=== PATIENT | male | born 1955 | race Caucasian/White ===

== ENCOUNTER 2019-03-06 05:09 | Observation (INO) ==
[2019-03-04 08:45] LABS: HEMATOCRIT 44.5 % (42.0-52.0); HEMOGLOBIN 15.5 g/dL (14.0-18.0); MCHC 34.8 g/dL (33-37); MCV 83.3 FL (81-99); MPV 9.7 FL (7.4-10.4); RBC 5.34 XMIL (4.7-6.1); WBC 5.66 X1000 (4.8-10.8)
[2019-03-04 08:54] LABS: INR 0.94; PROTIME 13.4 Seconds (11.0-16.0)
[2019-03-04 09:25] LABS: AGAP 11; BUN 20 mg/dL (8-22); CALCIUM 9.2 mg/dL (8.8-10.2); CHLORIDE 100 mmol/L (98-107); COSMO 279; CREATININE 1.1 mg/dL (0.7-1.2); ESTIMATED GFR > 60; GLUCOSE 137 mg/dL (70-104); POTASSIUM 4.3 mmol/L (3.5-5.1); SODIUM 137 mmol/L (136-145); TCO2 26 mmol/L (25-35)
--- NOTE | 2019-03-05 19:37 | HISTORY AND PHYSICAL ---
HISTORY OF PRESENT ILLNESS: 63-year-old male with history of bladder cancer and significant BPH and recurrent prostatitis. He had undergone TURBT in 2015. He has hesitancy, urgency and has had UTIs with urosepsis. He underwent cystoscopy on 02/20/2019 which revealed significant bilobar prostatic hypertrophy with obstruction. He was counseled medical therapy versus [facility] TURP and desires to proceed with the surgery. PAST MEDICAL HISTORY: GERD, allergic rhinitis, arthritis, BPH, gout, history of bladder cancer, hypertension, hypogonadism, urolithiasis. PAST SURGICAL HISTORY: Cystoscopy with bilateral retrograde pyelograms, transurethral resection of bladder tumor, right extracorporeal shockwave lithotripsy. HOME MEDICATIONS: Coreg, Diovan, Flomax, Norvasc. ALLERGIES: PRUDENCE inhibitors. FAMILY HISTORY: Positive for diabetes, hypertension, hyperlipidemia, prostate cancer. SOCIAL HISTORY: Denies tobacco, alcohol or drug use. PHYSICAL EXAMINATION: GENERAL: No acute distress. HEENT: Normocephalic, atraumatic. CARDIOVASCULAR: Regular rhythm. ABDOMEN: Protuberant, nontender to palpation. : Normal external male genitalia. Meatus is patent. Testes descended bilaterally. ASSESSMENT AND PLAN: A 63-year-old male with significant benign prostatic hypertrophy with symptoms who has had urinary tract infections and urosepsis. He desires definitive surgical intervention. We discussed risks of [facility] transurethral resection of prostate including but not limited to bleeding, infection, injury to adjacent structures, small risk of permanent urinary incontinence and risk of permanent erectile dysfunction as well as persistent irritative voiding were explained. We also discussed the need for future interventions. He voiced understanding and wants to proceed. PLAN: [facility] transurethral resection of the prostate. cc: Mitch Jones MD
[2019-03-06] MEDS ORDERED: KEFZOL 1 GM/D5W 2 GM/100 ML IVPB ONE (06:01)
[2019-03-06] MEDS ORDERED: LR 1,000 ML ONE (06:01)
[2019-03-06] MEDS ORDERED: DIPRIVAN 1% ONE (06:28)
[2019-03-06] MEDS ORDERED: SUFENTA ONE (06:37)
[2019-03-06] MEDS ORDERED: NS 250 ML ONE ×3 (07:21→08:23)
[2019-03-06] MEDS ORDERED: DECADRON ONE (07:24)
[2019-03-06] MEDS ORDERED: ZOFRAN ONE (07:24)
[2019-03-06] MEDS ORDERED: B & O 16A SUPP ONE (07:30)
[2019-03-06] MEDS: DILAUDID ONE ×2 (09:01→09:04)
[2019-03-06] MEDS ORDERED: PYRIDIUM ONE (09:43)
[2019-03-06] MEDS ORDERED: NORCO-5 ONE (09:43)
[2019-03-06] MEDS ORDERED: DEMEROL ONE ×2 (10:51→11:25)
[2019-03-06] MEDS ORDERED: DITROPAN PO ONE (12:05)
[2019-03-06] MEDS ORDERED: DITROPAN ONE (12:15)
[2019-03-06] MEDS ORDERED: PYRIDIUM PO PRN (13:41)
[2019-03-06] MEDS ORDERED: NORCO-5 PO PRN (13:42)
[2019-03-06] MEDS ORDERED: NORCO-7.5 PO PRN (13:42)
[2019-03-06] MEDS ORDERED: DEMEROL IV PRN (13:43)
[2019-03-06] MEDS ORDERED: NORCO-10 PO PRN (13:43)
[2019-03-06] MEDS ORDERED: ZOFRAN IV PRN ×2 (13:44→14:45)
[2019-03-06] MEDS ORDERED: PHENERGAN IM PRN (13:44)
[2019-03-06] MEDS ORDERED: DEMEROL IM PRN (13:44)
[2019-03-06] MEDS ORDERED: NORCO-7.5 ONE (13:54)
[2019-03-06] MEDS ORDERED: PHENERGAN PO PRN (14:45)
[2019-03-06] MEDS ORDERED: TYLENOL PO PRN (14:45)
[2019-03-06] MEDS ORDERED: PHENERGAN IV PRN (14:45)
[2019-03-06] MEDS ORDERED: LABETALOL IV PRN (14:45)
[2019-03-06] MEDS ORDERED: PHENERGAN PR PRN (14:45)
[2019-03-06] MEDS ORDERED: DILAUDID IV PRN (14:45)
[2019-03-06] MEDS ORDERED: SODIUM CHLORIDE 0.9% INJ PRN (14:45)
[2019-03-06] MEDS ORDERED: B & O 15A SUPP PR PRN (14:45)
[2019-03-06] MEDS ORDERED: DITROPAN PO PRN (14:45)
[2019-03-06] MEDS ORDERED: OFIRMEV 1000 MG/ISOTONIC SOLN 1,000 MG/100 ML BOTTLE IV PRN (14:45)
[2019-03-06] MEDS ORDERED: D5 1/2 NS 1,000 ML IV SCH (15:00)
[2019-03-06] MEDS: KEFZOL 2 GM/D5W 2 GM/50 ML IVPB IV SCH ×3 (15:34→22:35)
[2019-03-06] MEDS: HYZAAR 100/12.5 MG TAB PO SCH (17:19)
[2019-03-06] MEDS: NORVASC PO SCH (17:19)
[2019-03-06] MEDS: IMDUR PO SCH (17:19)
[2019-03-06] MEDS: COREG PO SCH (17:20)
[2019-03-06 18:31] LABS: URINE SOURCE CATH
[2019-03-06 18:34] LABS: BILIRUBIN URINE NEGATIVE (NEGATIVE); BLOOD URINE MODERATE (NEGATIVE); COLOR YELLOW; GLUCOSE URINE >1000 mg/dL (NEGATIVE); KETONE URINE NEGATIVE (NEGATIVE); LEUKOCYTES URINE NEGATIVE (NEGATIVE); NITRITE URINE NEGATIVE (NEGATIVE); PH URINE 5.5; PROTEIN URINE TRACE mg/dL (NEGATIVE); SP GRAVITY URINE 1.017; TURBIDITY URINE HAZY (CLEAR); UR EPITHELIAL CELLS <10 /HPF (<10); URINE BACTERIA NEGATIVE /HPF; URINE RBC TNTC /HPF (<10); URINE WBC <10 /HPF (<10); UROBILINOGEN URINE NORMAL (NORMAL)
--- NOTE | 2019-03-06 19:48 | OPERATIVE NOTE ---
PROCEDURE DATE: 03/06/2019 SURGEON: Mtich Jones MD. PREOPERATIVE DIAGNOSES: 1. Benign prostatic hypertrophy. 2. Weak stream. 3. History of urinary tract infections with urosepsis. POSTOPERATIVE DIAGNOSES: 1. Benign prostatic hypertrophy. 2. Weak stream. 3. History of urinary tract infections with urosepsis. PROCEDURE: [facility] transurethral resection of the prostate. INDICATIONS: A 63-year-old male with history of bladder cancer and significant BPH with recurrent prostatitis. He has hesitancy, weak stream, has had UTIs with urosepsis. He underwent cystoscopy in the office in February 2019, revealing significant bilobar prostatic hypertrophy with obstruction. He was counseled on medical therapy versus TURP, and wants to proceed with [facility] TURP. He was counseled on the risks of the procedure, specifically the risk of permanent urinary incontinence, irritative voiding, erectile dysfunction, the need for additional interventions, as well as permanent retrograde ejaculation. FINDINGS: 193,209 joules were used, laser time was 34 minutes and 2 seconds, power ranged from 80 youngblood to 120 youngblood. Adequate hemostasis at the conclusion of the case. DESCRIPTION OF PROCEDURE: After obtaining informed consent, patient was brought to the operating room. Perioperative antibiotics and laryngeal mask anesthesia were administered. He was placed in lithotomy position, prepped and draped in sterile fashion. A 21-Cymro rigid cystoscope was used to gain access to the urethra and the bladder, which were examined in systematic fashion. He had a fairly high riding bladder neck and significant bilobar prostatic hypertrophy with approximately 4 to 5 cm length of prostatic urethra. There was no evidence of median lobe. I was able to visualize his bladder without evidence of mucosal lesions, diverticula, or stones seen in the bladder lumen. He had a few moderate trabeculations. I was able to see bilateral ureteral orifices with clear efflux. We then removed the cystoscope and introduced a 23-Cymro scope with [facility] laser fiber. I started at the level of the bladder neck at 5 o'clock and 7 o'clock, making troughs with a power of 80 youngblood. We resected the adenoma down to the level of the verumontanum distally with the same wattage. I then increased the power to 120 youngblood and resected the lateral lobes until the capsule was visible. The power setting was then decreased back down to 80 youngblood to address the prostatic tissue at the level of the verumontanum as well as anteriorly. There was some bleeding from venous sinuses on the patient's left side just proximal to the verumontanum and attempts to coagulate with the laser fiber were unsuccessful. Hence, I used a Bugbee electrocautery at a setting of 50 with sterile water and was able to obtain excellent hemostasis. Upon reexamination, there was a wide open TUR defect, no redundant tissue, no evidence of resection distal to the level of the verumontanum, ureteral orifices were not involved by the resection. The resectoscope was removed and a 20-Cymro, 3-way Her catheter was introduced with 30 mL of sterile water placed into the balloon. Catheter was placed on light traction and connected to continuous bladder irrigation with normal saline. The patient was extubated and taken to PACU for further recovery. ESTIMATED BLOOD LOSS: 30 mL. COMPLICATIONS: None. DRAINS: A 20-Cymro, 3-way Her catheter. SPECIMENS: None. DISPOSITION: To PACU and subsequently home with prescriptions for Toradol 10 (#21), Keflex 500 (#6), Pyridium 200 (#30 with 1 refill). cc: Mitch Jones MD
[2019-03-06] MEDS: COLACE PO SCH (21:23)
[2019-03-06] MEDS: PERIDEX MT SCH (21:23)
[2019-03-07] MEDS: KEFZOL 2 GM/D5W 2 GM/50 ML IVPB IV SCH (06:26)
[2019-03-07 06:52] LABS: HEMATOCRIT 39.8 % (42.0-52.0); HEMOGLOBIN 13.8 g/dL (14.0-18.0); MCH 29.3 PG (27-31); MCHC 34.7 g/dL (33-37); MCV 84.5 FL (81-99); MPV 10.3 FL (7.4-10.4); RBC 4.71 XMIL (4.7-6.1); RDW 12.9 % (11.5-14.5); WBC 11.54 X1000 (4.8-10.8)
[2019-03-07 07:14] LABS: CALCIUM 8.9 mg/dL (8.8-10.2); CREATININE 1.3 mg/dL (0.7-1.2)
[2019-03-07 07:49] VITALS: BP 109/54
[2019-03-07] MEDS: HYZAAR 100/12.5 MG TAB PO SCH (08:08)
[2019-03-07] MEDS: NORVASC PO SCH (08:09)
[2019-03-07] MEDS: IMDUR PO SCH (08:10)
[2019-03-07] MEDS: COREG PO SCH (08:10)
[2019-03-07] MEDS: PERIDEX MT SCH (08:11)
[2019-03-07] MEDS: COLACE PO SCH (08:11)
== END 2019-03-07 10:57 | disposition home or self-care (01) ==
LOC: PAT 05:09 → 4N 05:09 → OPS 05:09
PROVIDERS: ADMIT Urology; ATTEND Urology
CPT/HCPCS: 80048; 81001; 85027; 85610; 85730; 94761; 94799; A9270; J0690; J1100; J1170; J2175; J2405; J7050; J7120